=== PATIENT | male | born 1975 | race Caucasian/White ===

== ENCOUNTER 2017-04-20 08:33 | Emergency (ER) | payer BC, SELFPAY ==
[2017-04-20 08:33] VITALS: BP 155/93; PULSE 93; RESP 18; TEMP 36.6; O2SAT 96; BMI 43.8
--- NOTE | 2017-04-20 08:44 | ED.VISSUMM ---
- ER Visit Summary Date of Service: 04/20/17 Chief Complaint: Pain to right middle finger History of Present Illness: The patient is a 41 M notes increasing pain swelling right dorsal middle finger. Left hand dominant. Symptoms noted this morning. States he had a pain chip under his nail months ago, about 2 weeks ago the nail fell off at the tip. Denies any biting of the fingernails or skin. No fevers. No history of diabetes. No history of similar. No paresthesias. Physical Examination: General: Alert and oriented ?3, no acute distress HEENT: Normocephalic, atraumatic. Moist mucosa membranes Neck: supple, nontender. Cardiovascular: Regular rate and rhythm, no murmurs Respiratory: Normal breath sounds, symmetric, no distress Abdomen: Soft, nontender, nondistended Extremities: Right upper extremity: Middle finger noted white fluctuance lateral aspect of the nailbed ulnar. There is erythema at the base. No active drainage. Normal sensation. Neuro: no focal neurological deficits. Test Results: [] Emergency Department Course and Treatment: Patient exam concerns for paronychia. This was incised and drained with good exudative drainage. Wound care discussed. No antibiotics due to definitive care being I&D. Patient will follow-up PCP for reevaluation. Treatment Plan: [] Disposition: Discharge Impression: 1. Right middle finger paronychia status post I&D This note was generated with [employer] dictation software. It may contain incorrect words, spelling, and punctuation that were not noted in review of the chart prior to signing ED Disposition - Plan for ED Patient: Disposition: Home or Assisted Living Chief Complaint: Upper Extremity Injury Diagnosis: Paronychia of finger Instructions: ED Paronychia Ch Referrals: Galen Lofton DO [Primary Care Provider] - 5-7 Days
== END 2017-04-20 10:14 | disposition home or self-care (01) ==
PROVIDERS: Emergency Provider Emergency Medicine; Family Provider Preventive Medicine Occupational Medicine; PCP Preventive Medicine Occupational Medicine
DX: L03.011 Cellulitis of right finger (principal); I10 Essential (primary) hypertension
CPT/HCPCS: 10060; 99282

== ENCOUNTER → 2017-05-09 08:11 | Outpatient (CLI) | payer BC, SELFPAY ==
[2017-05-09 09:39] LABS: ALB/GLOB Ratio 1.1 RATIO (0.9-2.4); AST(SGOT) 39 U/L (15-37); Alanine Aminotransfer ALT/SGPT 73 U/L (16-61); Albumin, Serum 4.1 g/dL (3.2-5.0); Alkaline Phosphatase 67 U/L (45-117); Anion Gap 8 (5-15); BUN 16 mg/dL (7-18); BUN/Creat Ratio 16.9 RATIO (10-20); Calcium,Total 9.4 mg/dL (8.5-10.1); Chloride 105 mmol/L (98-107); Cholesterol 169 mg/dL (200); Creatinine, Serum 0.95 mg/dL (0.70-1.30); EST Glomerular Filtration Rate 94 mL/min (>60); Est Glom Filt Rate - Afr Amer 114 mL/min (>60); Globulin 3.7 g/dL (2.2-4.2); Glucose 83 mg/dL (74-106); High Density Lipoprotein 30 mg/dL; Potassium 4.1 mmol/L (3.5-5.1); Protein, Total 7.8 g/dL (6.4-8.2); Sodium Level 141 mmol/L (136-145); Triglycerides 210 mg/dL; Very Low Density Lipoprotein 42 mg/dL (5-40)
== END ==
PROVIDERS: Family Provider Preventive Medicine Occupational Medicine; PCP Preventive Medicine Occupational Medicine; Visit Provider Preventive Medicine Occupational Medicine
DX: I10 Essential (primary) hypertension (principal); E78.2 Mixed hyperlipidemia
CPT/HCPCS: 36415; 80053; 80061

== ENCOUNTER 2017-11-11 03:10 | Emergency (ER) | payer OTHER, BC, SELFPAY ==
[2017-11-11 03:11] VITALS: BP 179/87; PULSE 88; RESP 16; TEMP 37.1; O2SAT 95; BMI 39.3
--- NOTE | 2017-11-11 03:57 | ED.DCSUM_ITS ---
- ER Visit Summary Date of Service: 11/11/17 Chief Complaint: Back pain History of Present Illness: The patient is a 42 M who presents with back pain. While at work he does a lot of twisting and turning. He states he felt a little bit of pulling and burning in his left mid back. He has a history of degen erative disc disease. Currently his pain is only mild but he states it was about a 6 at its worst. He denies any weakness numbness tingling fevers abdominal pain chest pain shortness of breath urinary retention or fecal incontinence. Physical Examination: Afebrile vitals unremarkable except blood pressure 179/87 Moist mucous membranes Heart regular rate and rhythm Lungs are clear Patient does have some paraspinal tenderness of the left lower thoracic region Abdomen soft Normal strength and sensation of the extremities Test Results: Not indicated Emergency Department Course and Treatment: History and examination are consistent with a thoracic strain. He was advised on supportive care including anti-inflammatory use. He notes that he does have meloxicam at home but does not really like to take it except as needed. He was advised that this would be a good medication for a couple of days for his current problem. He understands to return for new or worsening symptoms. He will follow-up with [facility]. He was discharged. Treatment Plan: [] Disposition: Discharge Impression: Thoracic strain This note was generated with [employer] dictation software. It may contain incorrect words, spelling, and punctuation that were not noted in review of the chart prior to signing ED Disposition - Plan for ED Patient: Chief Complaint: Back Referrals: Galen Lofton DO [Primary Care Provider] -
--- NOTE | 2017-11-11 03:57 | ED.DEP ---
ED Disposition - Plan for ED Patient: Chief Complaint: Back Instructions: ED Sprain Thoracic Spine Referrals: Galen Lofton DO [Primary Care Provider] - [facility] [GROUP OF PHYSICIANS] -
[2017-11-11 04:01] VITALS: BP 154/99; PULSE 97; RESP 17; O2SAT 96
== END 2017-11-11 04:02 | disposition home or self-care (01) ==
PROVIDERS: Emergency Provider Emergency Medicine; Family Provider Preventive Medicine Occupational Medicine; PCP Preventive Medicine Occupational Medicine
DX: S29.012A Strain of muscle and tendon of back wall of thorax, initial encounter (principal); X50.1XXA Overexertion from prolonged static or awkward postures, initial encounter; Y93.9 Activity, unspecified; Y92.9 Unspecified place or not applicable; Y99.0 Civilian activity done for income or pay; I10 Essential (primary) hypertension; E78.00 Pure hypercholesterolemia, unspecified; Z79.899 Other long term (current) drug therapy; Z72.0 Tobacco use
CPT/HCPCS: 99282

== ENCOUNTER 2017-11-22 22:37 | Emergency (ER) | payer BC, SELFPAY ==
[2017-11-22 22:38] VITALS: BP 163/95; PULSE 87; RESP 17; TEMP 35.7; O2SAT 94; BMI 46.4
--- NOTE | 2017-11-22 23:34 | CT_ITS ---
STUDY: CT BRAIN WITHOUT CONTRAST REASON FOR EXAM: Male, 42 years old. Injury over the right eye RADIATION DOSAGE (If Supplied By Facility): CTDIvol = ( 44.99 ) mGy, DLP = ( 863.60 ) mGycm TECHNIQUE: Transaxial CT imaging of the brain was performed without administration of intravenous contrast material. Individualized dose optimization techniques were used for this CT. COMPARISON: None. FINDINGS: Normal soft tissue structures. Normal calvarium. Normal size ventricles and extra-axial spaces for the patient's age. Normal white matter tracts of the cerebral hemispheres. Normal basal ganglia and thalami. Normal brainstem. Normal cerebellum. There is no intracranial hemorrhage. There are no findings of an acute ischemic infarction. Normal visualized paranasal sinuses. CT/Brain/Head without Contrast IMPRESSION: Normal unenhanced CT scan of the brain. No acute findings in the brain. The right orbit is normal Electronically Signed: Wing Wilson MD at 0:09 EDT Tel , Service support ,
[2017-11-23] MEDS: Diphth,Pertuss(Acell),Tet Vac 0.5 ML Vial IM (00:02)
--- NOTE | 2017-11-23 00:18 | ED.VISSUMM ---
- ER Visit Summary Date of Service: 11/23/17 Chief Complaint: Facial laceration History of Present Illness: The patient is a 42 M presenting with laceration to his right eyebrow. Patient states he woke up on Thursday morning and had a cut on his right eyebrow. He does not recall how this happened. He states he was drinking on night but not heavily. He has no history of seizures or syncope. He woke up in his bed. He has no other complaints. Last tetanus is unknown. Tonight while at work he brushed up against something and his forehead started bleeding. No other complaints. Physical Examination: Vitals are stable. Patient is afebrile. Alert no acute distress. HEENT exam old laceration to right eyebrow with scabbing Neck is nontender Lungs are clear and equal bilaterally. Heart is regular rate and rhythm. Abdomen is soft nontender nondistended. Extremities are unremarkable. Skin is warm and dry. No focal neurologic deficit. Remainder of exam is unremarkable. Emergency Department Course and Treatment: Patient was given tetanus IM. Wound was cleaned and dressed. CT head normal unenhanced CT scan of the brain. No acute findings in the brain. The right orbit is normal. Advised wound care instructions. Advised to follow up with PCP. Advised to return to ED for worsening complaints. Disposition: Discharge home Impression: Facial laceration, closed head injury This note was generated with [employer] dictation software. It may contain incorrect words, spelling, and punctuation that were not noted in review of the chart prior to signing ED Disposition - Plan for ED Patient: Chief Complaint: Laceration Instructions: ED Head Injury Closed, ED Laceration All Referrals: Galen Lofton DO [Primary Care Provider] -
--- NOTE | 2017-11-23 00:24 | ED.DEP ---
ED Disposition - Plan for ED Patient: Chief Complaint: Laceration Instructions: ED Laceration All, ED Head Injury Closed Referrals: Galen Lofton DO [Primary Care Provider] -
[2017-11-23 00:25] VITALS: BP 136/90; PULSE 88; RESP 16; O2SAT 97
== END 2017-11-23 00:31 | disposition home or self-care (01) ==
PROVIDERS: Emergency Provider Emergency Medicine; Family Provider Preventive Medicine Occupational Medicine; PCP Preventive Medicine Occupational Medicine
DX: S01.111A Laceration without foreign body of right eyelid and periocular area, initial encounter (principal); X58.XXXA Exposure to other specified factors, initial encounter; Y93.9 Activity, unspecified; Y92.9 Unspecified place or not applicable; I10 Essential (primary) hypertension; Z72.0 Tobacco use
CPT/HCPCS: 70450; 90471; 90715; 99282

== ENCOUNTER → 2018-03-10 09:13 | Outpatient (CLI) | payer BC, SELFPAY ==
[2018-03-10 10:22] LABS: Amphetamine Urine VISTA NEGATIVE (<1000 ng/mL); Barbiturate Urine VISTA NEGATIVE (< 200 ng/mL); Benzodiazepine Urine VISTA NEGATIVE (< 200 ng/mL); Cocaine Urine VISTA NEGATIVE (< 300 ng/mL); Ecstacy Urine VISTA NEGATIVE (< 500 ng/mL); Methadone Urine VISTA NEGATIVE (< 300 ng/mL); PCP Urine VISTA NEGATIVE (< 25 ng/mL); THC Urine VISTA NEGATIVE (< 50 ng/mL); Vista UDS pH Range 6
--- OUTSIDE RECORDS SUMMARY | 2018-05-12 05:51 | XMS RPT_ITS ---
:1975 Author Organization OHIP Care Team Providers Name Role Phone SANTI LOFTON Attending Unavailable SANTI LOFTON Primary Care Unavailable TRACI HSIEH (SEPTIC TANK SERVICER) Attending Unavailable Shruthi HAMMOND (PA-C) Attending Unavailable Tim Chester Attending Unavailable Tim Chester Referring Unavailable Primay Care Physicia, No Primary Care Unavailable Santi Lofton Primary Care Unavailable Keven Crain Attending Unavailable Santi Lofton Attending Unavailable Santi Lofton Primary Care Unavailable Santi Lofton Primary Care Unavailable Oscar Salazar Attending Unavailable Santi Lofton Primary Care Unavailable Elle Kirkland Attending Unavailable PROBLEMS PROBLEMS DATE TYPE CONDITION / CODE ATTENDING STATUS SOURCE 03/10/2018 Unknown F11.20 - Opioid BasaliTim Active Anaid dependence, Community [facility] F11.20(ICD-10) Repository 02/01/2018 Active Essential (primary) Shruthi HAMMOND Active [place] hypertension / JEFF (PA-C) Clinic Main I10(ICD-10) [place] Repository 02/01/2018 Active Mixed hyperlipidemia Shruthi HAMMOND Active [facility] / E78.2(ICD-10) JEFF (PA-C) Clinic Main [place] Repository 09/06/2017 Active Cellulitis, IRIS, TRACI Active [facility] unspecified / (SEPTIC TANK SERVICER) Clinic Main L03.90(ICD-10) [place] Repository 09/06/2017 Active Urticaria, IRIS, TRACI Active [facility] unspecified / (SEPTIC TANK SERVICER) Clinic Main L50.9(ICD-10) [place] Repository PROCEDURES PROCEDURES No Procedure Records FoundRESULTS RESULTS URINE DRUG SCREEN Collected: 03/10/2018 Status: F Source: ANAID (VISTA) 9:19 AM [facility] REPOSITORY Order Comment: Comments: URINE TOXICOLOGY [id number] RUN LOWEST TEST List of Drugs Taken or Suspected? UNK TYPE CODE TESTS RESULT OUT OF RANGE REFERENCE UNITS LAB L505.0075 TO BE Normal CONFIRMED Result Comment: CONFIRMATORY TESTING FOR ALL POSITIVE URINE DRUG SCREEN RESULTS WILL ONLY BE SENT OUT UPON PHYSICIAN ORDER. VISTA Urine Drug Screen methods provide only preliminary analytical test results. A more specific alternate chemical method must be used in order to obtain a confirmed analytical result. Gas chromatography/mass spectrometery (GC/MS) is the preferred confirmatory method. Clinical consideration and professional judgement should be applied to any drug of abuse test result, particularly when preliminary positive results are used. URINE TCA TESTING MUST BE ORDERED SEPARATELY. USE TEST MNEMONIC: [facility] LAB L505.5005 VISTA UDS PH 6 Normal LAB L505.5015 <1000 ng/mL AMPHETAMINES Normal NEGATIVE LAB L505.5025 < 200 ng/mL BARBITIURATES Normal NEGATIVE LAB L505.5035 < 200 ng/mL BENZODIAZIPINE Normal NEGATIVE LAB L505.5045 < 300 ng/mL COCAINE Normal NEGATIVE LAB L505.5055 < 500 ng/mL ECSTACY Normal NEGATIVE LAB L505.5065 < 300 ng/mL METHADONE Normal NEGATIVE LAB L505.5075 < 300 ng/mL OPIATES Normal NEGATIVE LAB L505.5085 < 25 ng/mL PCP Normal NEGATIVE LAB L505.5095 < 50 ng/mL THC Normal NEGATIVE Performed By: #### L505.5000 #### [facility] [address] [place], [address] MISCELLANEOUS LAB Collected: 03/10/2018 Status: F Source: [place] PROCEDURE 9:19 AM [facility] REPOSITORY Order Comment: Comments: URINE TOXICOLOGY [id number] RUN LOWEST TEST Test(s) Ordered: URINE TOXICOLOGY [id number] RUN LOWEST TEST TYPE CODE TESTS RESULT OUT OF RANGE REFERENCE UNITS LAB L801.1541 Normal [facility] LAB TEST Result Comment: [id number] 6+OXYCODONE-BUND (ng/mL) DRUG RESULT SCREEN CUTOFF ____ Amphetamines,Urine Negative ng/mL 1000 Amphetamine test includes Amphetamine and Methamphetamine. Barbiturates Negative ng/mL 200 Benzodiazepines Negative ng/mL 200 Cannabinoid Negative ng/mL 20 Cocaine (Metab) Negative ng/mL 300 Opiates Negative ng/mL 300 Opiates test includes Codeine, Morphine, Hydromorphone, Hydrocodone. Oxycodone/Oxymorphone,Urine Negative ng/mL 300 Test includes Oxydodone and Oxymorphone. TESTING PERFORMED AT [facility]. ORIGINAL REPORT ON FILE IN LAB CONTAINS ADDITIONAL TEST SITE INFORMATION. Performed By: #### L801.1541 #### [facility] [address] [place], [address] PROGRESS Observed: 02/01/2018 Status: COMPLETED Source: [facility] 1:13 PM [facility] REPOSITORY HNO ID: [id number] Author: Shruthi Aguilar (Mariluz) Manish Service: (none) Author Type: Physician Medical Dir Type: Progress Notes Filed: 02/01/2018 6:54 PM Note Text: 42 year old male with c/o 1. HTN: x 20 years Current meds: losartan, HCTZ Patient is compliant with meds Yes Monitors bp at home: No. If yes, readings: Denies side effects: No. Chest pain: No. Dyspnea: No. Edema: No. Palpitations: No. Syncope: No. Headache: No. Dizziness: No. Last 3 Encounter BP Readings: Date: BP: 02/01/2018 130/78 09/06/2017 110/78 08/21/2015 122/86 Last 2 Encounter Wt Readings: Date: Wt: 02/01/2018 139.7 kg (308 lb) 09/06/2017 133.4 kg (294 lb) 2. Hyperlipidemia: Atorvastatin 40mg, Trico 134mg Taking medication consistently Yes Observing low cholesterol high fiber diet No Muscle aches No Stomach complaints/ diarrhea No Last 2 Lipids: 3. Lumbar DDD: Sees Dr. Chester. While his father states he complains of a shooting pain down his leg but is fairly uncommon. There is no weakness. Patient has had symptoms since the age of 22. 09/27/12 MRI of lumbar spine demonstrated multilevel foraminal stenosis. Patient is asking about we'll be willing to write him off work as needed under his FMLA restriction and tells me that he is planning to file for permanent disability based on his pain level. 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 Patient takes tramadol routinely under direction of Dr. Chester. Patient is also had injection recently with mild improvement. HISTORIES No family history on file. PAST MEDICAL HISTORY Diagnosis Date - Hyperlipidemia - Hypertension No past surgical history on file. Social History Marital status: Single Spouse name: Years of education: Number of children: Social History Main Topics Smoking status: Former Smoker Packs/day: 0.00 Years: 0.00 Smokeless tobacco: Current User Types: Chew ACTIVE PROBLEM LIST Hyperlipidemia, Mixed Essential Hypertension Current Outpatient Prescriptions: atorvastatin (LIPITOR) 40 mg tablet Take 40 mg by mouth once daily. Disp: Rfl: fenofibrate nanocrystallized (TRICOR) 145 mg tablet Take 145 mg by mouth once daily. Disp: Rfl: losartan-hydrochlorothiazide (HYZAAR) 100-25 mg per tablet Take 1 tablet by mouth once daily. Disp: Rfl: traMADol (ULTRAM) 50 mg tablet Take 50 mg by mouth twice daily. Disp: Rfl: No current facility-administered medications for this visit. ANNUAL PCP TEAM CHRONIC DISEASE VISIT due on 10/10/1995 DTAP,TDAP,TD(1 - Tdap) due on 1996 INFLUENZA(1) due on 10/17/2017 EXAM: BP 130/78 Pulse 88 Temp 37 ?C (98.6 ?F) (Tympanic) Resp 20 Ht 175.3 cm (5' 9) Wt (!) 139.7 kg (308 lb) BMI 45.48 kg/m? Pleasant obese adult man in no acute distress. Alert and oriented all spheres. Normal affect and cognition. Speech normal. No deficits to learning or comprehension. Skin warm, dry, pink to lips and nailbeds. Normal turgor. Respirations regular and unlabored. HEENT WNL. TM's clear. Nose and oropharynx free from injection or lesion. No cervical lymph nodes. Thyroid non-tender, no masses Chest CTA. HRRR without murmur or gallop. Neck supple with full range of motion. Back with normal curvature, even hips and shoulders. Patient is easily able to touch his toes, hyperextension, rotate and side bend without difficulty. No tender trigger points are palpable in the midline or paravertebral muscles. Extrem: no clubbing, cyanosis, edema. Extremities are warm and pink with prompt capillary refill. Lower extremity muscles are well-developed. Patient is able to walk on tiptoes and heels, shallow squat. Patient has 5 out of 5 resistance to hip flexors, abductors, adductors: Knee flexors and extensors: Foot plantar flexors and dorsiflexors. Straight leg raise is negative both seated and supine. No pain with internal or external rotation of hips. No sensory abnormalities. ASSESSMENT/PLAN: 1. Hyperlipidemia, mixed - ICD9: 272.2, ICD10: E78.2 - to be determined upon return of lab results - Continue current medication. - LIPID PANEL, NONFASTING - COMP METABOLIC PANEL 2. Essential hypertension - ICD9: 401.9, ICD10: I10 - good control - Recommended regular aerobic exercise. - Recommend home blood pressure monitoring, to bring results in on next visit - Goal of BP <130/80 - COMP METABOLIC PANEL - CK CREATINE KINASE 3. Lumbar foraminal stenosis - ICD9: 724.02, ICD10: M99.83 (primary diagnosis) Patient follows with Dr. Chester: Single prescription for Flexeril 10 mg #30 was provided. Patient is to discuss with pain management. I did have discussion with patient that I do not think he is at a point where he would qualify or benefit from total disability. We discussed issues of quality of life. We discussed the need for weight loss, core strengthening and effort made for measures to reduce pain, consideration of work modification 20 area where he doesn't have to stand on concrete and could have intermittent changes in position. He did discuss job training programs. Follow-up in 3 months for recheck. Carlo Hammond PA-C CNOV Observed: 02/01/2018 Status: COMPLETED Source: [place] 1:00 PM [facility] REPOSITORY Office Visit (FAMPWS) TOBI CHAUDHARY ([id number]) 1975 M Date Time Provider Department 02/01/18 1:00 PM Shruthi HAMMOND) FAMPWS During your visit today, we recorded the following information about you: Temperature Pulse Respiration Blood pressure 98.6 degrees 88/minute 20/minute 130/78 Weight Height 139.7 kg 1.753 m M Jeff Hammond PA-C 02/01/2018 6:54 PM Signed 42 year old male with c/o 1. HTN: x 20 years Current meds: losartan, HCTZ Patient is compliant with meds Yes Monitors bp at home: No. If yes, readings: Denies side effects: No. Chest pain: No. Dyspnea: No. Edema: No. Palpitations: No. Syncope: No. Headache: No. Dizziness: No. Last 3 Encounter BP Readings: Date: BP: 02/01/2018 130/78 09/06/2017 110/78 08/21/2015 122/86 Last 2 Encounter Wt Readings: Date: Wt: 02/01/2018 139.7 kg (308 lb) 09/06/2017 133.4 kg (294 lb) 2. Hyperlipidemia: Atorvastatin 40mg, Trico 134mg Taking medication consistently Yes Observing low cholesterol high fiber diet No Muscle aches No Stomach complaints/ diarrhea No Last 2 Lipids: 3. Lumbar DDD: Sees Dr. Chester. While his father states he complains of a shooting pain down his leg but is fairly uncommon. There is no weakness. Patient has had symptoms since the age of 22. 09/27/12 MRI of lumbar spine demonstrated multilevel foraminal stenosis. Patient is asking about we'll be willing to write him off work as needed under his FMLA restriction and tells me that he is planning to file for permanent disability based on his pain level. 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 Patient takes tramadol routinely under direction of Dr. Chester. Patient is also had injection recently with mild improvement. HISTORIES No family history on file. PAST MEDICAL HISTORY Diagnosis Date - Hyperlipidemia - Hypertension No past surgical history on file. Social History Marital status: Single Spouse name: Years of education: Number of children: Social History Main Topics Smoking status: Former Smoker Packs/day: 0.00 Years: 0.00 Smokeless tobacco: Current User Types: Chew ACTIVE PROBLEM LIST Hyperlipidemia, Mixed Essential Hypertension Current Outpatient Prescriptions: atorvastatin (LIPITOR) 40 mg tablet Take 40 mg by mouth once daily. Disp: Rfl: fenofibrate nanocrystallized (TRICOR) 145 mg tablet Take 145 mg by mouth once daily. Disp: Rfl: losartan-hydrochlorothiazide (HYZAAR) 100-25 mg per tablet Take 1 tablet by mouth once daily. Disp: Rfl: traMADol (ULTRAM) 50 mg tablet Take 50 mg by mouth twice daily. Disp: Rfl: No current facility-administered medications for this visit. ANNUAL PCP TEAM CHRONIC DISEASE VISIT due on 10/10/1995 DTAP,TDAP,TD(1 - Tdap) due on 1996 INFLUENZA(1) due on 10/17/2017 EXAM: BP 130/78 Pulse 88 Temp 37 ?C (98.6 ?F) (Tympanic) Resp 20 Ht 175.3 cm (5' 9) Wt (!) 139.7 kg (308 lb) BMI 45.48 kg/m? Pleasant obese adult man in no acute distress. Alert and oriented all spheres. Normal affect and cognition. Speech normal. No deficits to learning or comprehension. Skin warm, dry, pink to lips and nailbeds. Normal turgor. Respirations regular and unlabored. HEENT WNL. TM's clear. Nose and oropharynx free from injection or lesion. No cervical lymph nodes. Thyroid non-tender, no masses Chest CTA. HRRR without murmur or gallop. Neck supple with full range of motion. Back with normal curvature, even hips and shoulders. Patient is easily able to touch his toes, hyperextension, rotate and side bend without difficulty. No tender trigger points are palpable in the midline or paravertebral muscles. Extrem: no clubbing, cyanosis, edema. Extremities are warm and pink with prompt capillary refill. Lower extremity muscles are well-developed. Patient is able to walk on tiptoes and heels, shallow squat. Patient has 5 out of 5 resistance to hip flexors, abductors, adductors: Knee flexors and extensors: Foot plantar flexors and dorsiflexors. Straight leg raise is negative both seated and supine. No pain with internal or external rotation of hips. No sensory abnormalities. ASSESSMENT/PLAN: 1. Hyperlipidemia, mixed - ICD9: 272.2, ICD10: E78.2 - to be determined upon return of lab results - Continue current medication. - LIPID PANEL, NONFASTING - COMP METABOLIC PANEL 2. Essential hypertension - ICD9: 401.9, ICD10: I10 - good control - Recommended regular aerobic exercise. - Recommend home blood pressure monitoring, to bring results in on next visit - Goal of BP <130/80 - COMP METABOLIC PANEL - CK CREATINE KINASE 3. Lumbar foraminal stenosis - ICD9: 724.02, ICD10: M99.83 (primary diagnosis) Patient follows with Dr. Chester: Single prescription for Flexeril 10 mg #30 was provided. Patient is to discuss with pain management. I did have discussion with patient that I do not think he is at a point where he would qualify or benefit from total disability. We discussed issues of quality of life. We discussed the need for weight loss, core strengthening and effort made for measures to reduce pain, consideration of work modification 20 area where he doesn't have to stand on concrete and could have intermittent changes in position. He did discuss job training programs. Follow-up in 3 months for recheck. MARILUZ Ricks PA-C 02/01/2018 1:46 PM Signed Please return to the office on approximately 6 months of as needed. Open access hours are: Thursday 8 am-6 pm Thursday 8 am-4 pm Thursday 8 am-4 pm 8 am-6 pm Thursday 8 am-4 pm Try to avoid activities which increase pain. Position for comfort with pillows under or between legs to decrease stress on low back and hip when in bed. Sleeping conditions are very important to back health. You need to sleep on a surface that supports your hips in a neutral position. Sagging in the hip or shoulder areas will contribute to muscle irritation. Using a low footstool when sitting upright may also reduce low back pain. Try to arrange seating to allow support in the area where your back curves, especially while watching TV or playing video games. Sitting or standing with a hunched posture will cause or aggravate muscle pain in the neck and low back. Ice or moist heat or both may help with pain and stiffness. Apply for 10-15min as needed. Flexeril is a muscle relaxer which can cause drowsiness and may be habit forming if used regularly for extended periods. You should not drink alcohol, drive, or operate dangerous machinery while taking this medication. Darnell Bello spine handout given and reviewed. Muscle energy techniques as shown 30 sec stretch 3-4 reps twice a day. As pain improves may move to additional postural and back strengthening exercises. Referring Provider: SELF [200] Allergies As of Date: 02/01/2018 Noted Allergy Reaction DICLOFENAC 09/06/2017 2 - Rash PENICILLINS 06/01/2015 16 - Unknown Date Reviewed: 02/01/2018 Reviewed by: Yessy Cardenas LPN - Fully Assessed Reason for Visit: Establish Care [42] Refill Request [94] Cmt: patient would like a muscle relaxer for the back pain to go along with tramadol FMLA Paperwork [0505] Cmt: would like FMLA forms completed d/t back pain. Will have forms faxed to the office. Reason For Visit History Recorded Primary Visit Diagnosis:Lumbar foraminal stenosis [M99.83] Other Visit Diagnoses:Hyperlipidemia, mixed [E78.2] Essential hypertension [I10] Order(s):atorvastatin (LIPITOR) 40 mg tabletTake 1 tablet by mouth once daily.Disp: 90 tabletRfl: 1 fenofibrate nanocrystallized (TRICOR) 145 mg tabletTake 1 tablet by mouth once daily.Disp: 90 tabletRfl: 1 losartan-hydrochlorothiazide (HYZAAR) 100-25 mg per tabletTake 1 tablet by mouth once daily.Disp: 90 tabletRfl: 1 LIPID PANEL, NONFASTING [SQLIPNF] Order #: [id number] FUTURE COMP METABOLIC PANEL [SQCMP] Order #: [id number] FUTURE CK CREATINE KINASE [SQCK] Order #: [id number] FUTURE cyclobenzaprine (FLEXERIL) 10 mg tabletTake 1 tablet by mouth three times daily as needed.Disp: 30 tabletRfl: 0 Prescriptions as of 02/01/2018 Sig: ATORVASTATIN 40 MG TABLET Take 1 tablet by mouth once d* FENOFIBRATE NANOCRYSTALLIZED * Take 1 tablet by mouth once d* LOSARTAN 100 MG-HYDROCHLOROTH* Take 1 tablet by mouth once d* TRAMADOL 50 MG TABLET Take 50 mg by mouth twice hector* CYCLOBENZAPRINE 10 MG TABLET Take 1 tablet by mouth three * Problem List As Of Date 02/01/2018 Noted Resolved Hyperlipidemia, mixed [E78.2] INVALID FOR* Essential hypertension [I10] INVALID FOR* Other instructions from your clinician: Please return to the office on approximately 6 months of as needed. Open access hours are: Thursday 8 am-6 pm Thursday 8 am-4 pm Thursday 8 am- 4 pm 8 am- 6 pm Thursday 8 am-4 pm Try to avoid activities which increase pain. Position for comfort with pillows under or between legs to decrease stress on low back and hip when in bed. Sleeping conditions are very important to back health. You need to sleep on a surface that supports your hips in a neutral position. Sagging in the hip or shoulder areas will contribute to muscle irritation. Using a low footstool when sitting upright may also reduce low back pain. Try to arrange seating to allow support in the area where your back curves, especially while watching TV or playing video games. Sitting or standing with a hunched posture will cause or aggravate muscle pain in the neck and low back. Ice or moist heat or both may help with pain and stiffness. Apply for 10-15min as needed. Flexeril is a muscle relaxer which can cause drowsiness and may be habit forming if used regularly for extended periods. You should not drink alcohol, drive, or operate dangerous machinery while taking this medication. Darnell Bello spine handout given and reviewed. Muscle energy techniques as shown 30 sec stretch 3-4 reps twice a day. As pain improves may move to additional postural and back strengthening exercises. Prescriptions ordered this encounter Disp Refills Start End ATORVASTATIN 40 MG TABLET 90 t* 1 02/01/2018 Route: ORAL Sig: Take 1 tablet by mouth once daily. FENOFIBRATE NANOCRYSTALLIZED 145 MG * 90 t* 1 02/01/2018 Route: ORAL Sig: Take 1 tablet by mouth once daily. LOSARTAN 100 MG-HYDROCHLOROTHIAZIDE * 90 t* 1 02/01/2018 Class: [facility] Route: ORAL Sig: Take 1 tablet by mouth once daily. CYCLOBENZAPRINE 10 MG TABLET 30 t* 0 02/01/2018 Route: ORAL Sig: Take 1 tablet by mouth three times daily as needed. Medications Discontinued During This Encounter triamcinolone acetonide (KENALOG) 0.* 30 g 0 09/06/2017 02/01/2018 Route: TOPICAL Sig: Apply 1 application to affected area three times daily. Apply sparingly to area for rash/itching. Disc: Reason for discontinue is not on file. HYDROCHLOROTHIAZIDE ORAL 02/01/2018 Class: Historical Med Route: ORAL Sig: Take by mouth. Disc: Reason for discontinue is not on file. atorvastatin (LIPITOR) 40 mg tablet 02/01/2018 Class: Historical Med Route: ORAL Sig: Take 40 mg by mouth once daily. Disc: Reason for discontinue is not on file. fenofibrate nanocrystallized (TRICOR* 02/01/2018 Class: Historical Med Route: ORAL Sig: Take 145 mg by mouth once daily. Disc: Reason for discontinue is not on file. losartan-hydrochlorothiazide (HYZAAR* 02/01/2018 Class: Historical Med Route: ORAL Sig: Take 1 tablet by mouth once daily. Disc: Reason for discontinue is not on file. Disposition: Return in about 6 months (around 08/02/2018). Follow-up and Disposition History Recorded Encounter Status:Closed by Shruthi HAMMOND PA-C on 02/01/18 EMERGENCY DEPARTMENT Observed: 11/23/2017 Status: F Source: [address] SUMMARY 12:33 AM [facility] REPOSITORY [facility] Medical Records Department [address] [place] [address] Emergency Department Summary 11/23/17 0018 MR#: [id number] Acct: [id number] Name: TOBI CHAUDHARY Rep #: [id number] : 1975 42 From: Elle Kirkland MD PCP: Santi Lofton DO Status: DEP ER - ER Visit Summary Date of Service: 11/23/17 Chief Complaint: Facial laceration History of Present Illness: The patient is a 42 M presenting with laceration to his right eyebrow. Patient states he woke up on Thursday morning and had a cut on his right eyebrow. He does not recall how this happened. He states he was drinking on night but not heavily. He has no history of seizures or syncope. He woke up in his bed. He has no other complaints. Last tetanus is unknown. Tonight while at work he brushed up against something and his forehead started bleeding. No other complaints. Physical Examination: Vitals are stable. Patient is afebrile. Alert no acute distress. HEENT exam old laceration to right eyebrow with scabbing Neck is nontender Lungs are clear and equal bilaterally. Heart is regular rate and rhythm. Abdomen is soft nontender nondistended. Extremities are unremarkable. Skin is warm and dry. No focal neurologic deficit. Remainder of exam is unremarkable. Emergency Department Course and Treatment: Patient was given tetanus IM. Wound was cleaned and dressed. CT head normal unenhanced CT scan of the brain. No acute findings in the brain. The right orbit is normal. Advised wound care instructions. Advised to follow up with PCP. Advised to return to ED for worsening complaints. Disposition: Discharge home Impression: Facial laceration, closed head injury This note was generated with BitMethod dictation software. It may contain incorrect words, spelling, and punctuation that were not noted in review of the chart prior to signing ED Disposition - Plan for ED Patient: Chief Complaint: Laceration Instructions: ED Head Injury Closed, ED Laceration All Referrals: Santi Lfoton DO [Primary Care Provider] - What to do if you have Problems For any increased pain, shortness of breath, bleeding, nausea or vomiting, chest pain, or any unexpected problems, contact your Primary Care Provider. Call [facility] ([phone]) or report to the closest Emergency Room. Call 911 if necessary. 11/23/173 <Electronically signed by Elle Kirkland MD> Date Elle Kirkland MD Cosigner Signature (If Indicated): Date CC: Santi Lofton DO DISCHARGE INSTRUCTION Observed: 11/23/2017 Status: F Source: [address] 12:25 AM [facility] Medical Records Department [address] [place] [id number] Discharge Instruction 11/23/1723 MR#: [id number] Acct: [id number] Name: TOBI CHAUDHARY Rep #: [id number] : 1975 42 From: Elle Kirkland MD PCP: Santi Lofton DO Status: REG ER ED Disposition - Plan for ED Patient: Chief Complaint: Laceration Instructions: ED Laceration All, ED Head Injury Closed Referrals: Santi Lofton DO [Primary Care Provider] - What to do if you have Problems For any increased pain, shortness of breath, bleeding, nausea or vomiting, chest pain, or any unexpected problems, contact your Primary Care Provider. Call [facility] ([phone]) or report to the closest Emergency Room. Call 911 if necessary. 11/23/17 0025 <Electronically signed by Elle Kirkland MD> Date Elle Kirkland MD Cosigner Signature (If Indicated): Date CC: Santi Lofton DO BRAIN/HEAD WITHOUT Observed: 11/22/2017 Status: F Source: ANAID CONTRAST 11:34 PM [facility] REPOSITORY [facility] Imaging Services [address] [place] [address] Brain/Head without Contrast MR#: [id number] Acct: [id number] Name: TOBI CHAUDHARY Rep #: [id number] : 1975 M 42 From: Wing Wilson MD PCP: Santi Lofton DO Status: REG ER Study: Brain/Head without Contrast Date of Exam: 11/22/17 Exam# [id number] Ordering Dr: Elle Kirkland MD STUDY: CT BRAIN WITHOUT CONTRAST REASON FOR EXAM: Male, 42 years old. Injury over the right eye RADIATION DOSAGE (If Supplied By Facility): CTDIvol = ( 44.99 ) mGy, DLP = ( 863.60 ) mGycm TECHNIQUE: Transaxial CT imaging of the brain was performed without administration of intravenous contrast material. Individualized dose optimization techniques were used for this CT. COMPARISON: None. FINDINGS: Normal soft tissue structures. Normal calvarium. Normal size ventricles and extra-axial spaces for the patient's age. Normal white matter tracts of the cerebral hemispheres. Normal basal ganglia and thalami. Normal brainstem. Normal cerebellum. There is no intracranial hemorrhage. There are no findings of an acute ischemic infarction. Normal visualized paranasal sinuses. CT/Brain/Head without Contrast IMPRESSION: Normal unenhanced CT scan of the brain. No acute findings in the brain. The right orbit is normal Electronically Signed: Wing Wilson MD at 0:09 EDT Tel , Service support , CC: Elle Kirkland MD; Santi Lofton DO Supervisor [employer]ing [employer]: Signed DISCHARGE INSTRUCTION Observed: 11/11/2017 Status: F Source: ANAID 3:58 AM [facility] REPOSITORY [facility] Medical Records Department [address] [place] [address] Discharge Instruction 11/11/17356 MR#: [id number] Acct: [id number] Name: TOBI CHAUDHARY Rep #: [id number] : 1975 42 From: Oscar Salazar MD PCP: Santi Lofton DO Status: REG ER ED Disposition - Plan for ED Patient: Chief Complaint: Back Instructions: ED Sprain Thoracic Spine Referrals: Santi Lofton DO [Primary Care Provider] - [facility] [GROUP OF PHYSICIANS] - What to do if you have Problems For any increased pain, shortness of breath, bleeding, nausea or vomiting, chest pain, or any unexpected problems, contact your Primary Care Provider. Call [facility] ([phone]) or report to the closest Emergency Room. Call 911 if necessary. 11/11/17357 <Electronically signed by Oscar Salazar MD> Date Oscar Salazar MD Cosigner Signature (If Indicated): Date CC: Santi Lofton DO EMERGENCY DEPARTMENT Observed: 11/11/2017 Status: F Source: ANAID SUMMARY 3:57 AM [facility] Medical Records Department [address] [place] [address] Emergency Department Summary 11/11/175 MR#: [id number] Acct: [id number] Name: TOBI CHAUDHARY Rep #: [id number] : 1975 42 From: Oscar Salazar MD PCP: Santi Lofton DO Status: REG ER - ER Visit Summary Date of Service: 11/11/17 Chief Complaint: Back pain History of Present Illness: The patient is a 42 M who presents with back pain. While at work he does a lot of twisting and turning. He states he felt a little bit of pulling and burning in his left mid back. He has a history of degenerative disc disease. Currently his pain is only mild but he states it was about a 6 at its worst. He denies any weakness numbness tingling fevers abdominal pain chest pain shortness of breath urinary retention or fecal incontinence. Physical Examination: Afebrile vitals unremarkable except blood pressure 179/87 Moist mucous membranes Heart regular rate and rhythm Lungs are clear Patient does have some paraspinal tenderness of the left lower thoracic region Abdomen soft Normal strength and sensation of the extremities Test Results: Not indicated Emergency Department Course and Treatment: History and examination are consistent with a thoracic strain. He was advised on supportive care including anti-inflammatory use. He notes that he does have meloxicam at home but does not really like to take it except as needed. He was advised that this would be a good medication for a couple of days for his current problem. He understands to return for new or worsening symptoms. He will follow-up with [facility]. He was discharged. Treatment Plan: [] Disposition: Discharge Impression: Thoracic strain This note was generated with BitMethod dictation software. It may contain incorrect words, spelling, and punctuation that were not noted in review of the chart prior to signing ED Disposition - Plan for ED Patient: Chief Complaint: Back Referrals: Santi Lofton DO [Primary Care Provider] - What to do if you have Problems For any increased pain, shortness of breath, bleeding, nausea or vomiting, chest pain, or any unexpected problems, contact your Primary Care Provider. Call [facility] ([phone]) or report to the closest Emergency Room. Call 911 if necessary. 11/11/17 0357 <Electronically signed by Oscar Salazar MD> Date Oscar Salazar MD Cosigner Signature (If Indicated): Date CC: Santi Lofton DO PROGRESS Observed: 09/06/2017 Status: COMPLETED Source: [facility] 12:55 PM [facility] REPOSITORY HNO ID: [id number] Author: Traci Soliman) Iris Service: (none) Author Type: Nurse Practitioner Type: Progress Notes Filed: 09/06/2017 1:21 PM Note Text: Subjective HPI HPI Tobi Chaudhary is a 41 year old male who presents today for CC of itching and rash This started over a month ago. He is also having redness and scabbing Symptoms are worsened by nothing He has tried benadryl without relief. Risk factors new medication use. BP 110/78 Pulse 80 Temp 37.1 ?C (98.8 ?F) Resp 18 Wt 133.4 kg (294 lb) ALLERGIES Allergen Reactions - Diclofenac Rash - Penicillins Unknown There is no problem list on file for this patient. No family history on file. Social History Marital status: Single Spouse name: Years of education: Number of children: Social History Main Topics Smoking status: Former Smoker Packs/day: 0.00 Years: 0.00 Smokeless tobacco: Current User Types: Chew PAST MEDICAL HISTORY Diagnosis Date - Hyperlipidemia - Hypertension Review of Systems Constitutional: Negative for chills, fever and malaise/fatigue. Genitourinary: Negative for dysuria. Musculoskeletal: Negative for joint pain and myalgias. Skin: Positive for itching and rash (arms back legs). Neurological: Negative for headaches. Objective Physical Exam Constitutional: He is oriented to person, place, and time and well-developed, well-nourished, and in no distress. No distress. HENT: Head: Normocephalic and atraumatic. Eyes: Conjunctivae and EOM are normal. Pupils are equal, round, and reactive to light. Neck: Normal range of motion. Neck supple. Pulmonary/Chest: Effort normal. Neurological: He is alert and oriented to person, place, and time. Skin: Skin is warm and dry. Rash noted. Rash is papular and maculopapular. There is erythema. Psychiatric: Affect normal. Nursing note and vitals reviewed. ASSESSMENT/PLAN: 1. Cellulitis of skin - ICD9: 682.9, ICD10: L03.90 (primary diagnosis) - Begin treatment with Cephalaxin (Keflex) - No lymphangetic streaking, this was defined for patient to watch for and to seek medical care immediately if appears - Area of cellulitis defined with pen, seek further attention if this area continues to enlarge - Follow up for recheck in [address] Kaufman - CEPHALEXIN 500 MG CAPSULE 2. Hives - ICD9: 708.9, ICD10: L50.9 - Likely allergic etiology discussed with patient - Anti itch therapy of triamcinolone cream recommended prn Medrol dose pack - Follow up if symptoms persist or worsen. - TRIAMCINOLONE ACETONIDE 0.1 % TOPICAL CREAM - METHYLPREDNISOLONE 4 MG TABLETS IN A DOSE PACK * Seek medical care immediately, call 911, go to ER if you have chest pain, difficulty breathing, shortness of breath, inability to swallow. CNOV Observed: 09/06/2017 Status: COMPLETED Source: [facility] 12:30 PM [facility] REPOSITORY Office Visit ([facility]) TOBI CHAUDHARY ([id number]) 1975 M Date Time Provider Department 09/06/17 12:30 PM TRACI HSIEH ([facility]) [facility]STR During your visit today, we recorded the following information about you: Temperature Pulse Respiration Blood pressure 98.8 degrees 80/minute 18/minute 110/78 Weight 133.4 kg Traci Hsieh APRN.CNP 09/06/2017 1:21 PM Signed Subjective HPI HPI Tobi Chaudhary is a 41 year old male who presents today for CC of itching and rash This started over a month ago. He is also having redness and scabbing Symptoms are worsened by nothing He has tried benadryl without relief. Risk factors new medication use. BP 110/78 Pulse 80 Temp 37.1 ?C (98.8 ?F) Resp 18 Wt 133.4 kg (294 lb) ALLERGIES Allergen Reactions - Diclofenac Rash - Penicillins Unknown There is no problem list on file for this patient. No family history on file. Social History Marital status: Single Spouse name: Years of education: Number of children: Social History Main Topics Smoking status: Former Smoker Packs/day: 0.00 Years: 0.00 Smokeless tobacco: Current User Types: Chew PAST MEDICAL HISTORY Diagnosis Date - Hyperlipidemia - Hypertension Review of Systems Constitutional: Negative for chills, fever and malaise/fatigue. Genitourinary: Negative for dysuria. Musculoskeletal: Negative for joint pain and myalgias. Skin: Positive for itching and rash (arms back legs). Neurological: Negative for headaches. Objective Physical Exam Constitutional: He is oriented to person, place, and time and well-developed, well-nourished, and in no distress. No distress. HENT: Head: Normocephalic and atraumatic. Eyes: Conjunctivae and EOM are normal. Pupils are equal, round, and reactive to light. Neck: Normal range of motion. Neck supple. Pulmonary/Chest: Effort normal. Neurological: He is alert and oriented to person, place, and time. Skin: Skin is warm and dry. Rash noted. Rash is papular and maculopapular. There is erythema. Psychiatric: Affect normal. Nursing note and vitals reviewed. ASSESSMENT/PLAN: 1. Cellulitis of skin - ICD9: 682.9, ICD10: L03.90 (primary diagnosis) - Begin treatment with Cephalaxin (Keflex) - No lymphangetic streaking, this was defined for patient to watch for and to seek medical care immediately if appears - Area of cellulitis defined with pen, seek further attention if this area continues to enlarge - Follow up for recheck in [address] Kaufman - CEPHALEXIN 500 MG CAPSULE 2. Hives - ICD9: 708.9, ICD10: L50.9 - Likely allergic etiology discussed with patient - Anti itch therapy of triamcinolone cream recommended prn Medrol dose pack - Follow up if symptoms persist or worsen. - TRIAMCINOLONE ACETONIDE 0.1 % TOPICAL CREAM - METHYLPREDNISOLONE 4 MG TABLETS IN A DOSE PACK * Seek medical care immediately, call 911, go to ER if you have chest pain, difficulty breathing, shortness of breath, inability to swallow. Traci Hsieh, PABLO.[facility] 09/06/2017 1:00 PM Signed ASSESSMENT/PLAN: 1. Cellulitis of skin - ICD9: 682.9, ICD10: L03.90 (primary diagnosis) - Begin treatment with Cephalaxin (Keflex) - No lymphangetic streaking, this was defined for patient to watch for and to seek medical care immediately if appears - Area of cellulitis defined with pen, seek further attention if this area continues to enlarge - Follow up for recheck in [address] Kaufman - CEPHALEXIN 500 MG CAPSULE 2. Hives - ICD9: 708.9, ICD10: L50.9 - Likely allergic etiology discussed with patient - Anti itch therapy of triamcinolone cream recommended prn Medrol dose pack - Follow up if symptoms persist or worsen. - TRIAMCINOLONE ACETONIDE 0.1 % TOPICAL CREAM - METHYLPREDNISOLONE 4 MG TABLETS IN A DOSE PACK * Seek medical care immediately, call 911, go to ER if you have chest pain, difficulty breathing, shortness of breath, inability to swallow. Referring Provider: SELF [200] Allergies As of Date: 09/06/2017 Noted Allergy Reaction DICLOFENAC 09/06/2017 2 - Rash PENICILLINS 06/01/2015 16 - Unknown Date Reviewed: 09/06/2017 Reviewed by: Traci ([facility]) Iris - Fully Assessed Reason for Visit: Rash [1087] Cmt: x 1 month rash/allergic reactioon to medication on right arm and back Primary Visit Diagnosis:Cellulitis of skin [L03.90] Other Visit Diagnosis:Hives [L50.9] Order(s):cephALEXin (KEFLEX) 500 mg capsuleTake 1 capsule by mouth twice daily for 10 days.Disp: 20 capsuleRfl: 0 triamcinolone acetonide (KENALOG) 0.1 % creamApply 1 application to affected area three times daily. Apply sparingly to area for rash/itching.Disp: 30 gRfl: 0 methylPREDNISolone (MEDROL, MOY,) 4 mg Dose-PackFollow dosing instructions, take with food.Disp: 1 PackageRfl: 0 Prescriptions as of 09/06/2017 Sig: FENOFIBRATE NANOCRYSTALLIZED * Take 145 mg by mouth once hector* ATORVASTATIN 40 MG TABLET Take 40 mg by mouth once tom* LOSARTAN 100 MG-HYDROCHLOROTH* Take 1 tablet by mouth once d* CEPHALEXIN 500 MG CAPSULE Take 1 capsule by mouth twice* TRIAMCINOLONE ACETONIDE 0.1 %* Apply 1 application to affect* METHYLPREDNISOLONE 4 MG TABLE* Follow dosing instructions, t* HYDROCHLOROTHIAZIDE ORAL Take by mouth. Problem List As Of Date: 09/06/2017 (None) Other instructions from your clinician: ASSESSMENT/PLAN: 1. Cellulitis of skin - ICD9: 682.9, ICD10: L03.90 (primary diagnosis) - Begin treatment with Cephalaxin (Keflex) - No lymphangetic streaking, this was defined for patient to watch for and to seek medical care immediately if appears - Area of cellulitis defined with pen, seek further attention if this area continues to enlarge - Follow up for recheck in [address] Kaufman - CEPHALEXIN 500 MG CAPSULE 2. Hives - ICD9: 708.9, ICD10: L50.9 - Likely allergic etiology discussed with patient - Anti itch therapy of triamcinolone cream recommended prn Medrol dose pack - Follow up if symptoms persist or worsen. - TRIAMCINOLONE ACETONIDE 0.1 % TOPICAL CREAM - METHYLPREDNISOLONE 4 MG TABLETS IN A DOSE PACK * Seek medical care immediately, call 911, go to ER if you have chest pain, difficulty breathing, shortness of breath, inability to swallow. Prescriptions ordered this encounter Disp Refills Start End CEPHALEXIN 500 MG CAPSULE 20 c* 0 09/06/2017 09/16/2017 Route: ORAL Sig: Take 1 capsule by mouth twice daily for 10 days. TRIAMCINOLONE ACETONIDE 0.1 % TOPICA* 30 g 0 09/06/2017 Route: TOPICAL Sig: Apply 1 application to affected area three times daily. Apply sparingly to area for rash/itching. METHYLPREDNISOLONE 4 MG TABLETS IN A* 1 Pa* 0 09/06/2017 09/12/2017 Sig: Follow dosing instructions, take with food. Encounter Status:Closed by TRACI HSIEH CNP on 09/06/17 XR KNEE 4 VIEWS Observed: 07/08/2017 Status: F Source: [place] [facility] 12:21 PM [facility]ATION REPOSITORY ORIGINAL XR KNEE 4 VIEWS RIGHT CLINICAL STATEMENT: knee pain. COMPARISON: None FINDINGS: No acute fracture or dislocation is identified. No joint effusion is seen. There are agar-jg-xyhodgap tricompartmental degenerative changes of the knee joint, most severe within the medial teresa nt compartment. There is a mild genu varum deformity of the knee. There is no radiopaque foreign body. IMPRESSION: No acute fracture or dislocation. Degenerative changes. Interpreted By: Berenice Hines MD Preliminary Report By: Berenice Hines MD Electronically Signed By: Berenice Hines MD Dictated Date: 07/08/2017 2:01:49 PM Prelim Date: 07/08/2017 2:01:49 PM Sign Date: 07/08/2017 2:04:00 PM COMPREHENSIVE METABOLIC Collected: 05/09/2017 Status: F Source: [place] 8:15 AM [facility] REPOSITORY TYPE CODE TESTS RESULT OUT OF RANGE REFERENCE UNITS LAB L501.0100 74-106 mg/dL Normal GLU 83 Result Comment: Please note revised GLUCOSE reference range effective 2017. LAB L501.1000 7-18 mg/dL Normal BUN 16 LAB L501.1100 0.70-1.30 mg/dL Normal CREAT,SERUM 0.95 Result Comment: The validity of the calculated GFR AND GFRAA in patients over 70 years has not been determined. Clinical correlation is essential. LAB L501.1110 >60 mL/min Normal EST GFR 94 Result Comment: Non- GFR Calc LAB L501.1115 >60 mL/min Normal EST GFR - AA 114 Result Comment: GFR Calc LAB L501.1300 10-20 RATIO Normal BUN/CRE 16.9 LAB L501.1500 6.4-8.2 g/dL T Normal PROT 7.8 LAB L501.1800 3.2-5.0 g/dL Normal ALB 4.1 LAB L501.1950 2.2-4.2 g/dL Normal GLOB 3.7 LAB L501.2000 0.9-2.4 RATIO Normal A/G 1.1 LAB L501.2200 8.5-10.1 mg/dL CA Normal 9.4 LAB L501.4100 15-37 U/L High AST 39 LAB L501.4305 45-117 U/L Normal ALK P 67 LAB L501.4405 16-61 U/L High ALT 73 Result Comment: Please note revised ALT reference range effective 2017. LAB L501.4600 0.20-1.00 mg/dL Normal T BILI 0.60 LAB L501.5300 136-145 mmol/L Normal NA 141 LAB L501.5600 3.5-5.1 mmol/L Normal K 4.1 LAB L501.5900 98-107 mmol/L Normal CL 105 LAB L501.6100 21.0-32.0 mmol/L Normal CO2 28.0 LAB L501.6200 5-15 Normal GAP 8 Performed By: #### L500.4050, L500.4100 #### [facility] [address] [place], [address] LIPID PROFILE Collected: 05/09/2017 Status: F Source: [address] 8:15 AM [facility] REPOSITORY TYPE CODE TESTS RESULT OUT OF RANGE REFERENCE UNITS LAB L501.4900 200 mg/dL Normal CHOL 169 Result Comment: <200 mg/dL Desirable 200-240 mg/dL Borderline >240 mg/dL High Risk LAB L501.5000 mg/dL High TRIG 210 Result Comment: The drugs N-Acetylcysteine and Metamizole may falsely depress this assay. Serum Triglycerides Reference Interval Normal <150 mg/dL Borderline high 150 - 199 mg/dL High 200 - 499 mg/dL Very High > or = 500 mg/dL LAB L501.6400 mg/dL Low HDL 30 Result Comment: The drugs N-Acetylcysteine and Metamizole may falsely depress this assay. Reference Range HDL <40 mg/dL Low HDL Cholesterol HDL >or= 60 mg/dL High HDL Cholesterol LAB L501.6500 0-130 mg/dL Normal LDL 97 LAB L501.6600 5-40 mg/dL High VLDL 42 Performed By: #### L500.4050, L500.4100 #### [facility] [address] [place], [address] EMERGENCY DEPARTMENT Observed: 04/20/2017 Status: F Source: [address] SUMMARY 9:28 AM [facility] REPOSITORY [facility] Medical Records Department [address] [place] [address] Emergency Department Summary 04/20/17 0844 MR#: [id number] Acct: [id number] Name: TOBI CHAUDHARY Rep #: [id number] : 1975 41 From: Keven Ritter PCP: Santi Lofton DO Status: REG ER - ER Visit Summary Date of Service: 04/20/17 Chief Complaint: Pain to right middle finger History of Present Illness: The patient is a 41 M notes increasing pain swelling right dorsal middle finger. Left hand dominant. Symptoms noted this morning. States he had a pain chip under his nail months ago, about 2 weeks ago the nail fell off at the tip. Denies any biting of the fingernails or skin. No fevers. No history of diabetes. No history of similar. No paresthesias. Physical Examination: General: Alert and oriented 3, no acute distress HEENT: Normocephalic, atraumatic. Moist mucosa membranes Neck: supple, nontender. Cardiovascular: Regular rate and rhythm, no murmurs Respiratory: Normal breath sounds, symmetric, no distress Abdomen: Soft, nontender, nondistended Extremities: Right upper extremity: Middle finger noted white fluctuance lateral aspect of the nailbed ulnar. There is erythema at the base. No active drainage. Normal sensation. Neuro: no focal neurological deficits. Test Results: [] Emergency Department Course and Treatment: Patient exam concerns for paronychia. This was incised and drained with good exudative drainage. Wound care discussed. No antibiotics due to definitive care being I AND D. Patient will follow-up PCP for reevaluation. Treatment Plan: [] Disposition: Discharge Impression: 1. Right middle finger paronychia status post I AND D This note was generated with BitMethod dictation software. It may contain incorrect words, spelling, and punctuation that were not noted in review of the chart prior to signing ED Disposition - Plan for ED Patient: Disposition: Home or Assisted Living Chief Complaint: Upper Extremity Injury Diagnosis: Paronychia of finger Instructions: ED Paronychia Ch Referrals: Santi Lofton DO [Primary Care Provider] - 5-7 Days What to do if you have Problems For any increased pain, shortness of breath, bleeding, nausea or vomiting, chest pain, or any unexpected problems, contact your Primary Care Provider. Call [facility] ([phone]) or report to the closest Emergency Room. Call 911 if necessary. 04/20/17 0928 <Electronically signed by Keven Ritter> Date Keven Breann DO Cosigner Signature (If Indicated): Date CC: Santi Lofton DO ALLERGIES ALLERGIES DATE TYPE / CODE NAME / CODE REACTION SEVERITY SOURCE 11/22/2017 Drug Penicillins/D07151 Hives Unknown [place] Allergy/416 0476(RXNORM) Community 270957([facility] ED CT) Repository 11/22/2017 Drug walnut/[id number]( Hives Unknown [place] Allergy/416 RXNORM) Community 630703([facility] ED CT) Repository 09/06/2017 DRUG DICLOFENAC RASH [facility] INGREDI/[address] 760757(SNOM Repository ED CT) 06/01/2015 Drug PENICILLINS UNKNOWN [facility] Class/[address]78 [address] [place] 1003(SNOMED Repository CT) 06/01/2015 DRUG WALNUT HIVES [facility] INGREDI/[address] 913330(SNOM Repository ED CT) ENCOUNTERS ENCOUNTERS ADMIT/DISCHARGE ACCOUNT NUMBER ADMITTING ENCOUNTER LOCATION SOURCE CLASS 03/10/2018 [id number] [facility] ding:LAB Repository 02/01/2018/02/03/20 [id number] Ambulatory [address] [place] Repository 11/22/2017/11/24/19 [id number] Emergency [address] ding:ED Repository 11/11/2017/11/12/19 [id number] Emergency [address] ding:ED Repository 09/06/2017/09/09/19 [id number] Ambulatory [address] Repository 07/08/2017/07/09/19 [id number] Ambulatory [address] ding:[facility] Repository 05/09/2017 [id number] Ambulatory [facility] ding:LAB Repository 04/20/2017/04/21/19 [id number] Emergency [address] ding:ED Repository PAYERS PAYERS ENCOUNTER GUARANTOR PAYER SUBSCRIBER SOURCE 03/10/2018 TOBI Salas Primary TOBI [address] [id number] Insurance:ANTHEMPolicy HUXLEYDOB: [facility] [place]: [id number] [id number] Repository [address]Ovh: (330) Date:4546-57-21WO [phone] () [address] [place] [address]LG: 03/10/2018 Secondary NOT GIVENUNK [place] Insurance:SELF PAY [facility] Number: Effective Repository Date:2018-03-10 11/22/2017 TOBI Salas Primary [place]BI Josue [place] [id number] Insurance:ANTHEMPolicy HUXLEYDOB: [facility] Number: [id number] [id number] Repository 245[address]Ucg: (330) Date:1252-73-99RH [phone] () [id number] [place] [address] 69344ML: 11/22/2017 Secondary NOT GIVENUNK [place] Insurance:SELF PAY [facility] Number: Effective Repository Date:2017-11-22 11/11/2017 TOBI Salas Primary Insurance:OBWC TOBI Josue [address] [id number] COMP MANAGEMENTPolicy HUXLEYDOB: [facility] Number: [id number] [id number] Repository [address]Ovn: (330) Date:3119-98-57MX [phone] () [place], [place] [address]OW: 11/11/2017 Secondary TOBI [address] Insurance:ANTHEMPolicy [facility]: [facility] Number: [id number] [id number] Repository Date:8157-68-75BZ [address], [place] [address]OY: 11/11/2017 Tertiary NOT GIVENUNK [place] Insurance:SELF PAY [facility] Number: Effective Repository Date:2017-11-11 07/08/2017 BE SIMONB: Primary BE CHAUDHARYDOB: [facility] E Insurance:ANTHEM BLUE [id number] [place], [place] Number: [place] [address]Ixc: 330 [id number]: (HP) Date:2017-07-08 [phone] ()Tel: 000) Name:[facility] [phone] () [address] [place] [address] [place] [address]EK: 05/09/2017 TOBI Salas Primary TOBI [address] [id number] [facility] Insurance:ANTHEMPolicy JETDOB: [facility] Number: [id number] [id number] Repository [id number]: [phone]) Date:[id number] [phone] () [address] [place] [address] [id number]: 05/09/2017 Secondary NOT GIVENUNK Anaid Insurance:SELF PAY [facility] Number: Effective Repository Date:2017-05-09 04/20/2017 TOBI Salas Primary TOBI Worrell [id number] [facility] Insurance:ANTHEMPolicy HUXLEYDOB: [facility] [place]: [id number] [id number] Repository [id number]: [phone]) Date:[id number] [phone] () [id number] [place] [address] [id number]: 04/20/2017 Secondary NOT GIVENUNK [place] Insurance:SELF PAY [facility] Number: Effective Repository Date:2017-04-20
== END ==
PROVIDERS: Referring Provider Anesthesiology Pain Medicine; Visit Provider Anesthesiology Pain Medicine
DX: F11.20 Opioid dependence, uncomplicated (principal)
CPT/HCPCS: 80307

== ENCOUNTER → 2018-04-14 11:29 | Outpatient (CLI) | payer BC, SELFPAY ==
--- NOTE | 2018-04-14 11:33 | RAD_ITS ---
STUDY: X-RAY - RIGHT KNEE REASON FOR EXAM: Male, 42 years old. Increasing right knee pain and swelling. Injury 20 years ago. TECHNIQUE: 4 view(s) of the knee. COMPARISON: None. FINDINGS: There is very early periarticular spurring of the medial femoral condyle as well as periarticular spurring along the medial margin of the lateral femoral condyle. There is mild periarticular spurring of the medial tibial plateau and minor spurring of the tibial spines. Mild subarticular sclerosis of the medial tibial plateau. Normal visualized proximal fibula. There is mild periarticular spurring of the base of the patella, as well as cortical spurring at the patellar insertion of the quadriceps tendon. There is no demonstrated destructive osseous lesion or acute fracture. There is degenerative arthrosis of the medial femorotibial compartment with moderate joint space narrowing. Normal lateral femorotibial compartment. Normal patellofemoral articulation. Normal proximal tibiofibular articulation. Small, wispy density in the suprapatellar tissues may reflect a very small joint effusion. The soft tissue structures are unremarkable. RAD/Knee 4 or More Views IMPRESSION: Degenerative arthrosis of the right knee, most prominent in the medial femorotibial compartment. Electronically Signed: Reynaldo Gaxiola, at 19:54 EST , Service support ,
[2018-04-14 14:20] LABS: Anion Gap 11 (5-15); BUN 19 mg/dL (7-18); BUN/Creat Ratio 17.4 RATIO (10-20); Calcium,Total 10.1 mg/dL (8.5-10.1); Chloride 102 mmol/L (98-107); Cholesterol 172 mg/dL (200); Creatinine, Serum 1.09 mg/dL (0.70-1.30); EST Glomerular Filtration Rate 79 mL/min (>60); Est Glom Filt Rate - Afr Amer 96 mL/min (>60); Glucose 82 mg/dL (74-106); High Density Lipoprotein 36 mg/dL; Potassium 3.8 mmol/L (3.5-5.1); Sodium Level 140 mmol/L (136-145); Triglycerides 188 mg/dL; Very Low Density Lipoprotein 38 mg/dL (5-40)
== END ==
PROVIDERS: Family Provider Family Medicine; PCP Family Medicine; Referring Provider Family Medicine; Visit Provider Family Medicine
DX: Z00.00 Encounter for general adult medical examination without abnormal findings (principal); M17.11 Unilateral primary osteoarthritis, right knee
CPT/HCPCS: 36415; 73564; 80048; 80061

== ENCOUNTER 2018-05-04 13:24 | Outpatient (RCR) | payer BC, SELFPAY ==
--- NOTE | 2018-06-17 13:25 | HP.FCE ---
HP OT Functional Capacity Eval - Task Lift Floor (Occasional 1-33% of Day): 75# Floor (Frequent 34-66% of Day): 38# Floor (Constant 67-100% of Day): 15# Floor PDL: Medium-Heavy Knee (Occasional 1-33% of Day): 75# Knee (Frequent 34-66% of Day): 38# Knee (Constant 67-100% of Day): 15# Knee PDL: Medium-Heavy Waist (Occasional 1-33% of Day): 75# Waist (Frequent 34-66% of Day): 38# Waist (Constant 67-100% of Day): 15# Waist PDL: Medium-Heavy Shoulder (Occasional 1-33% of Day): 75# Shoulder (Frequent 34-66% of Day): 38# Shoulder (Constant 67-100% of Day): 15# Shoulder PDL: Medium-Heavy Overhead (Occasional 1-33% of Day): 20# Overhead (Frequent 34-66% of Day): 10# Overhead (Constant 67-100% of Day): NA Overhead PDL: Light - Work Activity/Posture Bending: Occasional Ability (1-33% of day) Squatting: Occasional Ability (1-33% of day) Kneeling: Occasional Ability (1-33% of day) Comments: low occasional ability with external support Reaching out: Frequent Ability (34-66% of day) Reaching up: Frequent Ability (34-66% of day) Sitting: Frequent Ability (34-66% of day) Walking: Occasional Ability (1-33% of day) Comments: low occasional ability Standing: Frequent Ability (34-66% of day) - Reference Duration Sedentary Sedentary Light Light Light Medium Medium Medium Heavy Very Heavy Heavy Occasional (0-33% of day) Frequent (34-66% of day) Constant (67-100% of day) 10 # Negligible Negligible 15 # 8 # Negligible 20 # 10# Negli. 35 # 18 # 7 # 50 # 25 # 10 # 75 # 100 # >100 # 38 # 50 # >50 # 15 # 20 # >20 # - Patient Information Height: 1.73 m Weight:: 136.078 kg Hand Dominance: left - Medical History Medical History Including Restrictions: Pt states prior to he was in good health. PT states he has had difficulty with low back pain for about 5 years. pt states he was dx with DDD in . Pt states he did have 4 physical therapy apts that did help ed. him with stretching ex. etc. pt states he still does the exercises. Pt states he did have a cortisone shot by a pain mtg in [place] that was helpful. PT states he cont. with pain mtg in [place] had two more shots- states it is helpful, but his back does still flair up following some job tasks. PT states he does still have pain and states he has tried both ice and heat but neither one helps decrease his pain. Pt states his back does not hurt as bad when he is not twisting and turning. Pt states he does take Tramadol when his back pain is bad. Pt states he walks about a mile to mile and a half some days, does do his stretching. Reports no lifting restrictions. Smokeless tobacco user. - Diagnoses Diagnoses: Hypertension. high cholesterol. Degenerative disc disease - Symptoms Symptoms: low Back pain. Burning sensation low back. shooting pain down left leg. Decrease sitting tolerance. hx of right knee tear. hx of sx on left knee 15 yrs ago - Pain Pain: Pt reports low back pain 04/25. - Work History Work History: Pt works at [employer] 3rd shift. Pt states he has worked for [employer] for about two years. States July 2016 as [employer] employee and hired into company 2016. Pt states he thinks his lift requirement is 15-20#- Pt states he stands for long periods of time and requires a lot of trunk twisting, and part manipulation. 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 pt state he was working through [employer] agency for about 7 months and was a [employer] employee for several different companies. 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 Pt states 18 steps to the 2nd floor, bed and bathroom is on the 2nd floor. Pt states he has a walk-in shower. states he is ind. with all bathing/dressing and no issue with mobility in the home. Laundry is in the basement of the home. pt does all cooking, cleaning and laundry at ind. level. pt drives ind. and does own shopping. pt has not concerns with performing his ADLS. - Physical Examination ROM: pt demo with a decrease lumbar ext. all other ROM is WNL Strength: MMT grossly throughout UB 4/5. 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 right hand 3.22 all digits. left IF,MF and Thumb 3.22. Left RF, LF 3.61. slight decrease in sensation on bilateral hands Fine Motor: Denies Balance: Pt demo slight loss of balance but able to correct himself independently. - Non Material Handling Activities Bending: pt demo the ability to bend forward three times, ten times and ten times rapidly. pt reported a burning sensation on left lower back. pt can bend forward on a occasional ability. Squatting: pt demo the ability to squat three times and then ten times- pt c/o right side back pain 8/10 pt can squat on a low occasional ability Kneeling: pt demo limited ability to kneel with use of external support- pt completed ten times with dinora of external support and limited ability low occasional ability. Reaching out/up: pt demo the ability to reach out/up three times, ten times and ten times rapidly while standing. pt can reach out/up on a frequent ability. Walking: pt ambulate in short quick reciprocal steps for 5 min- pt reported back pain 8.5/10-9/10. pt was SOB with ambulation. pt can ambulate on a low occasional ability. Standing: pt demo the ability to stand for 8 min with no expressed or apparent discomfort- pt report he can stand for 5-8 hours without difficulty. Pt can stand on a frequent ability Sitting: pt demo the ability to sit for 45 min with no expressed or apparent discomfort. Pt can sit on a frequent ability. Climbing Stairs: pt demo the ability to ascend 10 steps with a reciprocal step pattern. Descend ten steps with a left first and use of handrail. - Dynamic Occasional Lifting Capacity Floor Lift: Pt demonstrated the ability to lift 75# maximally from floor level Knee Lift: Pt demonstrated the ability to lift 75# maximally from knee level Waist Lift: Pt demonstrated the ability to lift 75# maximally from waist level Shoulder Lift: Pt demonstrated the ability to lift 75# maximally from shoulder level Overhead Lift: Pt demonstrated the ability to lift 20 # maximally from overhead level Carrying: pt demo the ability to carry 35# for 60 feet with good ability. pt simulated job tasks with trunk rotaion- pt had a incrase in pain 09/25 Comments: completed simulation of job tasks pt states causes increase pain, with lift of 5# rotating from center to left to right and from right to left passed center- pt stated increase in back pain- pt did not move feet much when performing this task increasing need of trunk rotation.
== END 2018-05-04 19:00 | disposition home or self-care (01) ==
LOC: OT 13:24
PROVIDERS: Family Provider Family Medicine; PCP Family Medicine; Referring Provider Anesthesiology Pain Medicine; Visit Provider Anesthesiology Pain Medicine
DX: M54.5 Low back pain (principal)
CPT/HCPCS: 97750